=== PATIENT | female | born 1995 | race Two or more races ===

== ENCOUNTER → 2025-01-07 | Outpatient (CLI) | payer MEDICAID, SELFPAY ==
--- NOTE | 2025-01-07 09:30 | XR_ITS ---
Examination: Abdomen sonogram, complete Date and time of exam: January 07, 2025 0930 hours INDICATIONS: Right upper abdominal pain beginning one week ago. Technique: Multiple real-time grayscale transabdominal sonographic images of the abdomen have been obtained. Findings: 8 mm gallbladder polyp Negative for gallstones Gallbladder wall 0.3 cm Common bile duct 0.5 cm Pancreatic head 2.3 cm Aorta not enlarged. Liver 15.6 cm fatty infiltration Normal hepatopedal portal venous flow Patent IVC Right kidney 12.2 cm in the cortex 2.3 cm Midpole 8 mm calculus, there appear to be smaller calculi Left kidney 12.3 cm cortex 2.1 cm Upper pole 6 mm calculi, there appear to be smaller calculi No hydronephrosis Spleen 12.1 cm IMPRESSION: 8 mm gallbladder polyp Fatty liver Bilateral nonobstructing renal calculi
== END | disposition home or self-care (01) ==
PROVIDERS: PCP Registered Nurse Community Health; Referring Provider Registered Nurse Community Health; Visit Provider Registered Nurse Community Health
DX: K82.4 Cholesterolosis of gallbladder (principal); K76.0 Fatty (change of) liver, not elsewhere classified; N20.0 Calculus of kidney
CPT/HCPCS: 76700